=== PATIENT | female | born 1970 | race Caucasian/White ===

== ENCOUNTER 2018-03-28 02:44 | Emergency (ER) | payer MEDICAID ==
[~2018-03-28] VITALS: Ht 149.9 cm; Wt 83.9 kg
--- NOTE | 2018-03-28 02:53 | NUR ---
TO ER BED 9 C/O SUPRAPUBIC ABDOMINAL PAIN SINCE YESTERDAY. AA/OX4. +N/-V/-D. AMBULATED TO BED WITH STABLE GAIT. SKIN PINK, WARM, DRY. PEDAL PULSES PRESENT. MOVES ALL EXTREMITIES WELL. ACTIVE BOWEL SOUNDS NOTED. NAD. VSS. STABLE CONDITION. WILL CONTINUE TO MONITOR.
[2018-03-28] MEDS ORDERED: ONDANSETRON HCL/PF 4 MG/2 ML VIAL ONE (03:17)
[2018-03-28] MEDS ORDERED: MORPHINE SULFATE INJ 4 MG/ML DISP.SYRIN ONE (03:18)
[2018-03-28] MEDS: MORPHINE SULFATE INJ 2 MG/ML DISP.SYRIN IV ONE (03:24)
[2018-03-28] MEDS: IV NS 0.9% 1,000 ML BAG IV ONE (03:24)
[2018-03-28 03:25] LABS: BASOPHILS % (AUTO) 0.5 % (0.0-2.0); EOSINOPHILS % (AUTO) 2.2 % (0.0-6.0); HEMATOCRIT 40 % (33-45); HEMOGLOBIN 13.4 g/dL (11.5-14.8); LYMPHOCYTES # (AUTO) 2.1 /CMM (0.8-4.8); LYMPHOCYTES % (AUTO) 26.2 % (20.0-44.0); MEAN CORPUSCULAR HGB CONC 33 g/dl (31.0-36.0); MEAN CORPUSCULAR VOLUME 88 fL (82-100); MONOCYTES # (AUTO) 0.6 /CMM (0.1-1.30); MONOCYTES % (AUTO) 7.8 % (2.0-12.0); NEUTROPHILS # (AUTO) 5.1 /CMM (1.8-8.9); NEUTROPHILS % (AUTO) 63.3 % (43.0-81.0); PLATELET COUNT (AUTO) 331 /CMM (150-450); RDW COEFFICIENT OF VARIATION 13.8 (11.5-15.0); RED BLOOD CELL COUNT(AUTO) 4.58 MIL/uL (4.0-5.2)
[2018-03-28] MEDS: ONDANSETRON HCL/PF 4 MG/2 ML VIAL IVP ONE (03:25)
[2018-03-28 03:29] LABS: APPEARANCE,URINE SL CLOUDY (CLEAR); BILIRUBIN,URINE NEGATIVE (NEGATIVE); BLOOD, URINE 1+ Ery/uL (NEGATIVE); COLOR,URINE YELLOW (YELLOW); KETONES,URINE NEGATIVE (NEGATIVE); LEUKOCYTE ESTERASE ,URINE 2+ (NEGATIVE); NITRITE, URINE NEGATIVE (NEGATIVE); PH,URINE 7.5 (5.0-8.0); PROTEIN,URINE 1+ mg/dl (NEGATIVE); UGLUCOSE NEGATIVE (NEGATIVE); UROBILINOGEN,URINE 0.2 EU/dL (0.2)
[2018-03-28 03:33] LABS: CREATININE 0.8 mg/dL (0.6-1.3); POTASSIUM 3.8 mmol/L (3.5-5.1)
[2018-03-28 03:35] LABS: BACTERIA,URINE None seen /HPF (None Seen); SQUAMOUS EPITHELIAL CELL,UR Few /HPF (None Seen)
[2018-03-28 03:38] LABS: ALBUMIN 3.4 g/dL (3.4-5.0); BILIRUBIN,DIRECT 0.1 mg/dL (0.0-0.2); BILIRUBIN,TOTAL 0.5 mg/dL (0.2-1.0); TOTAL PROTEIN, SERUM 7.2 g/dL (6.4-8.2)
--- NOTE | 2018-03-28 03:45 | NUR ---
SKYE AT BEDSIDE.
--- NOTE | 2018-03-28 04:50 | NUR ---
Patient discharged to home in stable condition. Written and verbal after care instructions given. Patient verbalizes understanding of instruction.IV removed. Catheter intact and site benign. Pressure and 4x4 applied to site. No bleeding noted. AMBULATED WITH STEADY GAIT. 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
[2018-03-28 04:51] VITALS: BP 112/60
== END 2018-03-28 04:52 | disposition home or self-care (01) ==
LOC: ER 02:47
DX: N30.00 Acute cystitis without hematuria (principal); Z98.51 Tubal ligation status; Z90.710 Acquired absence of both cervix and uterus
CPT/HCPCS: 36415; 76856-TC; 80048-TC; 80076-TC; 81000-TC; 83690-TC; 84703-TC; 85025-TC; 87086-TC; 87186-TC; A4606; J2270; J2405; J7030; Z7610

== ENCOUNTER 2021-11-23 20:39 | Emergency (ER) | payer MEDICAID, OTHER ==
[~2021-11-23] VITALS: Ht 154.9 cm; Wt 88.5 kg
--- NOTE | 2021-11-23 21:20 | NUR ---
BIBS FOR C/O LLQ ABD PAIN X 2 WEEKS. WAS SEEN AT [facility]. GIVEN VALTREX FOR SHINGLES. AMBULATORY, AAOX4, IN PAIN 10/10, PLACED ON BED
[2021-11-23] MEDS ORDERED: ONDANSETRON HCL/PF 4 MG/2 ML VIAL ONE (21:38)
[2021-11-23] MEDS ORDERED: MORPHINE SULFATE INJ 4 MG/ML DISP.SYRIN ONE (21:38)
--- NOTE | 2021-11-23 21:38 | NUR ---
20G IV LINE ESTABLISHED AT [facility]. BLOOD DRAWN AND SENT TO LAB.
--- NOTE | 2021-11-23 21:39 | NUR ---
EMT AT BEDSIDE FOR EKG
--- NOTE | 2021-11-23 21:41 | NUR ---
URINE COLLECTED AND SENT TO LAB
[2021-11-23 21:51] LABS: BASOPHILS % (AUTO) 0.7 % (0.0-2.0); HEMATOCRIT 41 % (33-45); LYMPHOCYTES # (AUTO) 2.8 K/uL (0.8-4.8); MEAN CORPUSCULAR HGB CONC 34 g/dl (31.0-36.0); MEAN CORPUSCULAR VOLUME 87 fL (82-100); MONOCYTES # (AUTO) 0.7 K/uL (0.1-1.30); MONOCYTES % (AUTO) 10.9 % (2.0-12.0); NEUTROPHILS % (AUTO) 43.4 % (43.0-81.0); PLATELET COUNT (AUTO) 276 K/uL (150-450); RED BLOOD CELL COUNT(AUTO) 4.77 MIL/uL (4.0-5.2); WHITE BLOOD COUNT (AUTO) 6.9 K/uL (4.3-11.0)
[2021-11-23 22:00] LABS: CALCIUM, SERUM 8.8 mg/dL (8.5-10.1); CREATININE 0.8 mg/dL (0.6-1.3); POTASSIUM 3.9 mmol/L (3.5-5.1)
[2021-11-23] MEDS ORDERED: ONDANSETRON HCL/PF 4 MG/2 ML VIAL IVP ONE (22:00)
[2021-11-23] MEDS ORDERED: MORPHINE SULFATE INJ 2 MG/ML DISP.SYRIN IV ONE (22:00)
[2021-11-23] MEDS ORDERED: IV NS 0.9% 500 ML BAG IV ONE (22:00)
[2021-11-23 22:05] LABS: ALBUMIN 3.7 g/dL (3.4-5.0); BILIRUBIN,DIRECT 0.1 mg/dL (0.0-0.2); BILIRUBIN,TOTAL 0.3 mg/dL (0.2-1.0); TOTAL PROTEIN, SERUM 7.7 g/dL (6.4-8.2)
--- NOTE | 2021-11-23 22:40 | NUR ---
PATIENT TAKEN TO FOR CT ABDO VIA [facility]AN[facility]
[2021-11-23 23:19] LABS: BILIRUBIN,URINE NEGATIVE (NEGATIVE); COLOR,URINE YELLOW (YELLOW); LEUKOCYTE ESTERASE ,URINE NEGATIVE (NEGATIVE); NITRITE, URINE NEGATIVE (NEGATIVE); PROTEIN,URINE NEGATIVE (NEGATIVE); UGLUCOSE NEGATIVE (NEGATIVE); UROBILINOGEN,URINE 0.2 EU/dL (0.2)
[2021-11-24] MEDS ORDERED: PRED50TA PO (00:09)
--- NOTE | 2021-11-24 00:22 | NUR ---
PT OK TO DISCHARGE PER DR MILLER. IV removed. Catheter intact and site benign. Pressure and 4x4 applied to site. No bleeding noted.Patient discharged to home in stable condition. Written and verbal after care instructions given. Patient verbalizes understanding of instruction.Patient is awake and alert to self, day, and place. PT ambulatory with a steady gait
[2021-11-24 00:23] VITALS: BP 121/76
[2021-11-24 07:42] LABS: BACTERIA,URINE Rare /HPF (None Seen); SQUAMOUS EPITHELIAL CELL,UR Few /HPF (None Seen); WBC,URINE 0-2 /HPF (0-3)
== END 2021-11-24 00:23 | disposition home or self-care (01) ==
LOC: ER 20:40
DX: B02.29 Other postherpetic nervous system involvement (principal); R10.2 Pelvic and perineal pain; R10.32 Left lower quadrant pain; Z86.19 Personal history of other infectious and parasitic diseases; Z87.442 Personal history of urinary calculi; Z90.710 Acquired absence of both cervix and uterus; Z79.52 Long term (current) use of systemic steroids
CPT/HCPCS: 36415; 74176; 80048; 80076; 81001; 83690; 85025; 85730; 96374; 96375; 99284; J2270; J2405; J7040